=== PATIENT | female | born 1945 | race Caucasian/White ===

== ENCOUNTER 2016-12-04 11:36 | Emergency (ER) | payer MEDICARE, MEDICAID ==
[~2016-12-04] VITALS: Ht 165.1 cm; Wt 65.8 kg
[2016-12-04 12:00] VITALS: BP_SYST 120
--- NOTE | 2016-12-04 12:00 | NUR ---
Patient to ER bed 04 to gown for evaluation. Side rails up. Report given to CHASE Soliman.
--- NOTE | 2016-12-04 12:10 | NUR ---
Pt presents with soboe. Breathing is even and slightly labored on Ra. Sat = 97%. Wheezes to B/L lungs. No acute distress. Productive cough.
--- NOTE | 2016-12-04 12:11 | NUR ---
Dr. Mckeon at bedside for evaluation
[2016-12-04] MEDS ORDERED: IPRATROPIUM/ALBUTEROL SULFATE 3 ML AMPUL.NEB INH ONE (12:15)
[2016-12-04] MEDS ORDERED: DEXAMETHASONE SOD PHOSPHATE 10 MG/ML VIAL IM ONE (12:15)
--- NOTE | 2016-12-04 12:25 | NUR ---
Lab at bedside for blood draw
[2016-12-04 12:41] LABS: BASOPHILS % (AUTO) 0.5 % (0.0-2.0); EOSINOPHILS # (AUTO) 0.9 K/uL (0.0-0.4); EOSINOPHILS % (AUTO) 9.4 % (0.0-4.0); HEMATOCRIT 37.9 % (36-48); HEMOGLOBIN 12.7 g/dL (12.0-16.0); LYMPHOCYTES # (AUTO) 1.6 K/uL (1.0-5.5); LYMPHOCYTES % (AUTO) 16.7 % (20.5-51.5); MEAN CORPUSCULAR HEMOGLOBIN 30 pg (27-31); MEAN CORPUSCULAR HGB CONC 34 % (32-36); MEAN CORPUSCULAR VOLUME 89 fL (79.0-98.0); MONOCYTES # (AUTO) 0.7 K/uL (0.0-1.0); MONOCYTES % (AUTO) 7.4 % (1.7-9.3); NEUTROPHILS # (AUTO) 6.6 K/uL (1.8-7.7); PLATELET COUNT (AUTO) 369 K/uL (130-430); RED BLOOD CELL COUNT(AUTO) 4.28 MIL/uL (4.2-6.2); RED CELL DISTRIBUTION WIDTH 13.1 % (9.0-15.0); WHITE BLOOD COUNT (AUTO) 9.8 K/uL (4.8-10.8)
[2016-12-04 12:53] LABS: CALCIUM 8.9 mg/dL (8.4-11.0); CREATININE 0.96 mg/dL (0.55-1.30); POTASSIUM 3.5 mmol/L (3.5-5.1)
[2016-12-04 12:58] LABS: TOTAL BILIRUBIN 0.2 mg/dL (0.0-1.0); TOTAL PROTEIN, SERUM 7.4 g/dL (6.4-8.3)
--- NOTE | 2016-12-04 13:14 | NUR ---
BREATHING TREATMENT GIVEN. PT HAS A TIGHT CONGESTED SOUNDING COUGH. 02 SATS 98% DURING BREATHING TREATMENT.
[2016-12-04 14:26] VITALS: BP_SYST 112
--- NOTE | 2016-12-04 14:26 | NUR ---
Patient given written and verbal discharge instructions and verbalizes understanding. ER MD discussed with patient the results and treatment provided. Given copies of tests performed in ER. Patient in stable condition. ID arm band removed. Rx of bactrim and prednisone given. Patient educated on pain management and to follow up with PMD. Pain Scale . Opportunity for questions provided and answered. Pt discharged and will wait in the lobby for her taxi ride.
== END 2016-12-04 14:24 | disposition home or self-care (01) ==
LOC: SED 11:36
DX: J20.9 Acute bronchitis, unspecified (principal); E11.9 Type 2 diabetes mellitus without complications; I10 Essential (primary) hypertension; Z86.79 Personal history of other diseases of the circulatory system; Z88.0 Allergy status to penicillin
CPT/HCPCS: 36415; 71010; 80053; 83880; 85025; 96372; 99285; J1100

== ENCOUNTER 2017-01-10 15:45 | Inpatient (IN) | payer MEDICAID, MEDICARE ==
[~2017-01-10] VITALS: Ht 165.1 cm; Wt 79.4 kg
[2017-01-10 15:58] VITALS: BP_SYST 148
[2017-01-10] MEDS ORDERED: LACTULOSE 20 GM/30 ML UDC PO ONE (16:00)
[2017-01-10] MEDS ORDERED: NA PHOS,M-B/NA PHOS,DI-BA 118 ML (FLEET ENEMA) RC ONE (16:00)
[2017-01-10] MEDS ORDERED: NA PHOS,M-B/NA PHOS,DI-BA 66.6 ML (FLEET ENEMA PEDS) RC ONE ×2 (16:15)
[2017-01-10] MEDS ORDERED: NACL 0.9% 1,000 ML IV ONE (16:45)
[2017-01-10] MEDS ORDERED: MAGNESIUM CITRATE 300 ML ORAL SOLUTION PO ONE (17:00)
[2017-01-10 17:11] LABS: BASOPHILS % (AUTO) 0.3 % (0.0-2.0); EOSINOPHILS # (AUTO) 0.1 K/uL (0.0-0.4); EOSINOPHILS % (AUTO) 0.5 % (0.0-4.0); HEMATOCRIT 41.7 % (36-48); HEMOGLOBIN 13.8 g/dL (12.0-16.0); LYMPHOCYTES # (AUTO) 0.8 K/uL (1.0-5.5); LYMPHOCYTES % (AUTO) 6.4 % (20.5-51.5); MEAN CORPUSCULAR HEMOGLOBIN 29 pg (27-31); MEAN CORPUSCULAR HGB CONC 33 % (32-36); MEAN CORPUSCULAR VOLUME 88 fL (79.0-98.0); MONOCYTES # (AUTO) 0.5 K/uL (0.0-1.0); NEUTROPHILS # (AUTO) 11.6 K/uL (1.8-7.7); NEUTROPHILS % (AUTO) 88.8 % (40.0-70.0); PLATELET COUNT (AUTO) 370 K/uL (130-430); RED BLOOD CELL COUNT(AUTO) 4.74 MIL/uL (4.2-6.2); RED CELL DISTRIBUTION WIDTH 13.4 % (9.0-15.0)
[2017-01-10 17:22] LABS: CALCIUM 9.2 mg/dL (8.4-11.0); CREATININE 1.02 mg/dL (0.55-1.30)
[2017-01-10 17:27] LABS: ALBUMIN 3.4 g/dL (3.4-4.8); TOTAL BILIRUBIN 0.3 mg/dL (0.0-1.0); TOTAL PROTEIN, SERUM 7.9 g/dL (6.4-8.3)
[2017-01-10 17:30] VITALS: BP_SYST 149
[2017-01-10] MEDS ORDERED: GOLYTELY / COLYTE SOLUTION 4 LITERS PO ONE (18:15)
[2017-01-10 19:50] VITALS: BP_SYST 146
[2017-01-10 20:00] VITALS: BP_SYST 146
[2017-01-10] MEDS ORDERED: BISACODYL 5 MG TABLET.DR (DULCOLAX) ONE (21:34)
[2017-01-10] MEDS: LR 1,000 ML IV SCH (22:45)
[2017-01-10] MEDS ORDERED: DEXTROSE 50% JECT 50 ML DISP.SYRIN IVP PRN (22:45)
[2017-01-10] MEDS ORDERED: INSULIN REGULAR, HUMAN 100 UNITS/ML, 10 ML VIAL (novoLIN R) SUBCUT PRN (22:45)
[2017-01-11 00:43] VITALS: BP_SYST 132
[2017-01-11 02:32] LABS: BILIRUBIN,URINE NEGATIVE (NEGATIVE); BLOOD, URINE NEGATIVE (NEGATIVE); CLARITY/URINE CLEAR (CLEAR); COLOR,URINE YELLOW (YELLOW); GLUCOSE,URINE NEGATIVE (NEGATIVE); KETONES,URINE NEGATIVE (NEGATIVE); LEUKOCYTE ESTERASE ,URINE NEGATIVE (NEGATIVE); NITRITE, URINE NEGATIVE (NEGATIVE); PH,URINE 6.5 (5.0-8.0); PROTEIN URINE NEGATIVE (NEGATIVE); UROBILINOGEN,URINE 0.2 (0.2-1.0)
[2017-01-11 04:03] VITALS: BP_SYST 136
[2017-01-11 06:43] LABS: BASOPHILS % (AUTO) 0.2 % (0.0-2.0); EOSINOPHILS # (AUTO) 0.2 K/uL (0.0-0.4); EOSINOPHILS % (AUTO) 2.2 % (0.0-4.0); HEMATOCRIT 35.5 % (36-48); LYMPHOCYTES # (AUTO) 1.5 K/uL (1.0-5.5); LYMPHOCYTES % (AUTO) 14.6 % (20.5-51.5); MEAN CORPUSCULAR HEMOGLOBIN 30 pg (27-31); MEAN CORPUSCULAR HGB CONC 34 % (32-36); MEAN CORPUSCULAR VOLUME 88 fL (79.0-98.0); MONOCYTES # (AUTO) 0.9 K/uL (0.0-1.0); MONOCYTES % (AUTO) 8.5 % (1.7-9.3); NEUTROPHILS # (AUTO) 7.9 K/uL (1.8-7.7); NEUTROPHILS % (AUTO) 74.5 % (40.0-70.0); PLATELET COUNT (AUTO) 293 K/uL (130-430); RED BLOOD CELL COUNT(AUTO) 4.02 MIL/uL (4.2-6.2); RED CELL DISTRIBUTION WIDTH 13.1 % (9.0-15.0); WHITE BLOOD COUNT (AUTO) 10.5 K/uL (4.8-10.8)
[2017-01-11 06:44] LABS: PROTHROMBIN TIME 10.6 SECS (9.5-12.5)
[2017-01-11 07:19] LABS: CALCIUM 8.6 mg/dL (8.4-11.0); CREATININE 0.77 mg/dL (0.55-1.30); FREE T4 (FREE THYROXINE) 0.7 ng/dL (0.6-1.6); POTASSIUM 3.6 mmol/L (3.5-5.1); THYROID STIMULATING HORMONE 0.85 uIu/mL (0.34-4.82)
[2017-01-11] MEDS ORDERED: GOLYTELY / COLYTE SOLUTION 4 LITERS PO ONE ×2 (08:00→18:00)
[2017-01-11 08:01] VITALS: BP_SYST 128
[2017-01-11] MEDS: LR 1,000 ML IV SCH (08:45)
[2017-01-11 11:46] VITALS: BP_SYST 108
[2017-01-11 15:56] VITALS: BP_SYST 113
[2017-01-11] MEDS ORDERED: BISACODYL 5 MG TABLET.DR (DULCOLAX) PO ONE (17:00)
[2017-01-11 18:30] VITALS: BP_SYST 124
[2017-01-12 01:07] VITALS: BP_SYST 150
[2017-01-12 07:45] VITALS: BP_SYST 101
[2017-01-12 12:00] VITALS: BP_SYST 99
[2017-01-12] MEDS ORDERED: DOCUSATE SODIUM 100 MG CAPSULE PO PRN (15:30)
[2017-01-12 16:00] VITALS: BP_SYST 115
[2017-01-12 16:10] VITALS: BP_SYST 115
[2017-01-12 18:43] VITALS: BP_SYST 118
[2017-01-13] MEDS ORDERED: POLYETHYLENE GLYCOL 3350, 17 GM/ POWD.PACK PO SCH (09:00)
== END 2017-01-12 21:14 | disposition home or self-care (01) | DRG 247 ==
LOC: SED 15:45 → SMU 17:00
PROVIDERS: ADMIT Internal Medicine; ATTEND Internal Medicine
DX: K56.41 Fecal impaction (principal); E11.65 Type 2 diabetes mellitus with hyperglycemia; I10 Essential (primary) hypertension; E78.5 Hyperlipidemia, unspecified; E66.9 Obesity, unspecified; D72.829 Elevated white blood cell count, unspecified; H40.9 Unspecified glaucoma; Z88.0 Allergy status to penicillin; Z86.73 Personal history of transient ischemic attack (TIA), and cerebral infarction without residual deficits; Z68.29 Body mass index [BMI] 29.0-29.9, adult
CPT/HCPCS: 36415; 74000-TC; 80048; 80053; 80061; 81003; 82962; 83036; 83735-TC; 84439; 84443-TC; 85025; 85610-TC; 85730-TC; 99285; J1815; J7030

== ENCOUNTER 2017-01-17 15:36 | Inpatient (IN) | payer MEDICAID, MEDICARE ==
[~2017-01-17] VITALS: Ht 165.1 cm; Wt 81.6 kg
[2017-01-17] MEDS ORDERED: NACL 0.9% 1,000 ML IV SCH (15:40)
[2017-01-17 15:45] VITALS: BP_SYST 130
--- NOTE | 2017-01-17 15:52 | NUR ---
Pt report received from CHASE Parnell. Pt AAOx4, coherent speech, denies LOC, no trauma or injury noted.
--- NOTE | 2017-01-17 15:52 | NUR ---
Arrived via S ambulance for weakness, states that she nearly passed out today while climbing stairs and did in fact pass out yesterday while in the bathroom. Placed in room 2 . Placed on manager monitoring, blood pressure machine and pulse oximeter. To gown for exam. Side rails up. Report given to Nelson STONE.
[2017-01-17] MEDS ORDERED: NACL 0.9% 1,000 ML IV ONE (16:00)
--- NOTE | 2017-01-17 16:00 | NUR ---
# 18 gauge angiocath placed to RAC. Use of asceptic technique. Opsite placed over site. Blood return noted. Blood for lab drawn from site. Flushed with 10 cc of normal saline. No evidence of infiltration noted. Patient tolerated well.
--- NOTE | 2017-01-17 16:15 | NUR ---
Dr. Mckeon at bedside to assess pt.
--- NOTE | 2017-01-17 16:19 | NUR ---
01/17/17 1619: Late Entry: NS 999 mL/hr started at 1619 and ended at 1650.
[2017-01-17 16:23] LABS: HEMATOCRIT 40.5 % (36-48); HEMOGLOBIN 13.2 g/dL (12.0-16.0); MEAN CORPUSCULAR HEMOGLOBIN 29 pg (27-31); MEAN CORPUSCULAR HGB CONC 33 % (32-36); MEAN CORPUSCULAR VOLUME 87 fL (79.0-98.0); PLATELET COUNT (AUTO) 257 K/uL (130-430); RED BLOOD CELL COUNT(AUTO) 4.64 MIL/uL (4.2-6.2); RED CELL DISTRIBUTION WIDTH 13.2 % (9.0-15.0); WHITE BLOOD COUNT (AUTO) 3.8 K/uL (4.8-10.8)
[2017-01-17 16:31] LABS: PROTHROMBIN TIME 10.8 SECS (9.5-12.5)
[2017-01-17 16:40] LABS: CALCIUM 8.5 mg/dL (8.4-11.0); CREATININE 1.16 mg/dL (0.55-1.30); POTASSIUM 3.3 mmol/L (3.5-5.1)
[2017-01-17 16:44] LABS: ALBUMIN 3.1 g/dL (3.4-4.8); BAND % (MANUAL) 3 % (0-6); BASOPHILS % (MANUAL) 0 % (0-2); EOSINOPHILS % (MANUAL) 0 % (0-7); LYMPHOCYTES % (MANUAL) 22 % (20-46); MONOCYTES % (MANUAL) 19 % (0-11); TOTAL BILIRUBIN 0.2 mg/dL (0.0-1.0); TOTAL PROTEIN, SERUM 7.4 g/dL (6.4-8.3)
[2017-01-17] MEDS ORDERED: ASPIRIN 81 MG TAB.CHEW PO ONE (16:45)
[2017-01-17] MEDS ORDERED: cefTRIAXone 1 GM IVPB PREMIX 50 ML IV ONE (17:00)
--- NOTE | 2017-01-17 17:00 | NUR ---
Pt denies c/o pain or discomfort, no needs verbalized at this time.
--- NOTE | 2017-01-17 17:30 | NUR ---
Pt assisted to bedside comode, unable to provide urine at this time
--- NOTE | 2017-01-17 17:50 | NUR ---
Note janeth in EDM - 01/17/17 at 1907 by KEVIN Patient will be admitted to care of Dr. Tellez. Admitted to Tele unit. Will go to room 121 A. Belongings list completed. Summary report printed. Report will be given at bedside.
--- NOTE | 2017-01-17 17:53 | NUR ---
Patient will be admitted to care of Dr. Tellez. Admitted to Tele unit. Will go to room 121A. Belongings list completed. Summary report printed. Report will be given at bedside.
--- NOTE | 2017-01-17 17:56 | NUR ---
ADMIT NOTE Received pt from ER to the floor with a diagnosis of ALOC. Admission process initiated. patient oriented to pain management, safety and call light-teach back done.
[2017-01-17 18:11] VITALS: BP_SYST 160
--- NOTE | 2017-01-17 18:55 | NUR ---
Marcos fowler in ED - 01/17/17 at 1907 by KEVIN Pt assisted to bedside comode, unable to provide urine at this time.
[2017-01-17] MEDS ORDERED: POTASSIUM CHLORIDE 20 MEQ TAB.PRT.SR PO ONE (19:00)
[2017-01-17 19:05] LABS: BILIRUBIN,URINE NEGATIVE (NEGATIVE); BLOOD, URINE NEGATIVE (NEGATIVE); CLARITY/URINE CLEAR (CLEAR); COLOR,URINE YELLOW (YELLOW); GLUCOSE,URINE NEGATIVE (NEGATIVE); KETONES,URINE NEGATIVE (NEGATIVE); LEUKOCYTE ESTERASE ,URINE NEGATIVE (NEGATIVE); NITRITE, URINE NEGATIVE (NEGATIVE); PROTEIN URINE NEGATIVE (NEGATIVE); UROBILINOGEN,URINE 0.2 (0.2-1.0)
--- NOTE | 2017-01-17 19:46 | NUR ---
CONSULTATION PAGED REASON FOR CONSULTATION:SYNCOPE WAS CONSULT CALLED?Y PERSON WHO WAS NOTIFIED:LUIZ CONSULTING PHYSICIAN:SHANIQUE BRITT TOOL FILER SPECIALTY:CARDIO TOOL FILER PHONE NUMBER:[phone]
[2017-01-17 20:00] VITALS: BP_SYST 155
--- NOTE | 2017-01-17 20:00 | NUR ---
Initial Notes Received patient resting in bed, awake, alert, oriented. Patient denies any acute distress or pain at this time. Vital signs stable. Breathing is even and unlabored. IV site patent/clean/dry. Needs addressed. Educated patient on use of call light for assistance and fall precautions, patient verbalized understanding. Sitter at bedside, call light in hand. Will continue to monitor.
--- NOTE | 2017-01-17 20:17 | NUR ---
CONSULTATION PAGED REASON FOR CONSULTATION:ALOC WAS CONSULT CALLED?Y PERSON WHO WAS NOTIFIED:KHRIS CONSULTING PHYSICIAN:CITLALI MCDONALD HOT PLATE PLYWOOD PRESS FEEDER SPECIALTY:NEURO HOT PLATE PLYWOOD PRESS FEEDER PHONE NUMBER:[phone]
[2017-01-17] MEDS: DOCUSATE SODIUM 250 MG CAPSULE PO SCH (20:38)
--- NOTE | 2017-01-17 22:00 | NUR ---
Rounds and new IV insertion Patient resting in bed awake, watching TV. Patient denies any acute distress or pain at this time. Breathing is even and unlabored. Patient requesting new IV site, stating old IV is bothering her. New IV site started left forearm #22, good blood return noted, no S/S infiltration noted. Needs addressed. Call light in hand, sitter at bedside. Will continue to monitor.
--- NOTE | 2017-01-18 | NUR ---
Rounds Patient resting in bed with eyes closed, easily aroused. Patient denies any acute distress or pain at this time. Breathing is even and unlabored. Needs addressed. Sitter at bedside. Will continue to monitor.
[2017-01-18 00:13] VITALS: BP_SYST 104
--- NOTE | 2017-01-18 02:00 | NUR ---
Rounds Patient resting in bed, awake. Patient complaining of neighbor's television, stating it is too loud. Nurse was able to get television turned off. Patient denies any acute distress or pain. Breathing even and unlabored. All other needs addressed. Sitter at bedside.
--- NOTE | 2017-01-18 04:00 | NUR ---
Rounds Patient resting in bed with eyes closed. No acute distress noted, breathing is even and unlabored. Call light in hand, sitter at bedside. Will continue to monitor.
[2017-01-18 04:22] VITALS: BP_SYST 107
--- NOTE | 2017-01-18 06:25 | NUR ---
Closing Notes Patient sitting at edge of bed, watching TV. Patient denies any acute distress or pain at this time. Breathing is even and unlabored. IV site patent/clean/dry, no S/S infection/infiltration noted. Needs addressed throughout shift. Call light in hand, fall precautions in place, sitter at bedside. Will continue to monitor and endorse all patient care/needs to oncoming nurse.
--- NOTE | 2017-01-18 07:25 | NUR ---
AM RN Notes Report given by LANEY pinzon RN at bedside. Patient is awake. Informed of lab work to be drawn. Educated on safety call light is with in reach. Bed is in lowest position.
[2017-01-18 08:48] LABS: BASOPHILS % (AUTO) 0.5 % (0.0-2.0); EOSINOPHILS % (AUTO) 0.7 % (0.0-4.0); HEMATOCRIT 39.1 % (36-48); HEMOGLOBIN 12.8 g/dL (12.0-16.0); LYMPHOCYTES # (AUTO) 0.7 K/uL (1.0-5.5); MEAN CORPUSCULAR HEMOGLOBIN 29 pg (27-31); MEAN CORPUSCULAR HGB CONC 33 % (32-36); MEAN CORPUSCULAR VOLUME 87 fL (79.0-98.0); MONOCYTES # (AUTO) 0.5 K/uL (0.0-1.0); MONOCYTES % (AUTO) 11.5 % (1.7-9.3); NEUTROPHILS # (AUTO) 3.6 K/uL (1.8-7.7); NEUTROPHILS % (AUTO) 73.3 % (40.0-70.0); PLATELET COUNT (AUTO) 230 K/uL (130-430); RED BLOOD CELL COUNT(AUTO) 4.47 MIL/uL (4.2-6.2); RED CELL DISTRIBUTION WIDTH 13.1 % (9.0-15.0); WHITE BLOOD COUNT (AUTO) 4.8 K/uL (4.8-10.8)
[2017-01-18 08:50] VITALS: BP_SYST 117
[2017-01-18] MEDS: DOCUSATE SODIUM 250 MG CAPSULE PO SCH ×2 (08:59→21:00)
--- NOTE | 2017-01-18 09:30 | NUR ---
Rn rounding notes Patient is awake finishing up with Echo cardiogram. Assessment done on patient. Vital signs were done and imputed. Patient is requesting boost will follow up with doctor Rosalinda.
[2017-01-18 09:32] LABS: ERYTHROCYTE SEDIMENTATION RATE 33 MM/HR (0-20)
[2017-01-18 09:48] LABS: TRIGLYCERIDES 74 mg/dL (30-150)
[2017-01-18 09:49] LABS: CHOLESTEROL 144 mg/dL (<200); HDL CHOLESTEROL 41 mg/dL (>55); LDL CHOLESTEROL 91 mg/dL (<100)
[2017-01-18 09:55] LABS: ANION GAP 7 (5-15); ASPARTATE AMINOTRANSFERASE 24 U/L (10-37); CALCIUM 8.4 mg/dL (8.4-11.0); CHLORIDE 101 mmol/L (98-107); CREATININE 0.94 mg/dL (0.55-1.30); GFR AFRICAN AMERICAN 76 mL/min (>90); GLUCOSE 144 mg/dL (70-99); POTASSIUM 4.1 mmol/L (3.5-5.1); SODIUM SERUM 136 mmol/L (136-145); TOTAL BILIRUBIN 0.2 mg/dL (0.0-1.0); UREA NITROGEN, BLOOD 10 mg/dL (8-21)
[2017-01-18 09:56] LABS: ALANINE AMINOTRANSFERASE 22 U/L (12-78); TOTAL PROTEIN, SERUM 7.1 g/dL (6.4-8.3)
--- NOTE | 2017-01-18 11:35 | NUR ---
RN rounding notes Patient is awake and laying in bed. Call light is with in reach and bed is in lowest position.
[2017-01-18 12:00] VITALS: BP_SYST 109
--- NOTE | 2017-01-18 12:27 | NUR ---
CONSULT PSYCH [facility] DR HOOVER [phone] S/W PATY EXCHANGE @ [id number]
--- NOTE | 2017-01-18 12:30 | NUR ---
Social Service Note: Pt referred to manager social responsibility by case management associate. WEEKDAY BABYSITTER met with pt at bedside; WEEKDAY BABYSITTER asked pt to talk about her home environment; pt states that she is going to be moving soon into an extended care hotel where there is a kitchen temporarily until she can find a more permanent housing situation. Pt sates that she is currently living with relatives who do not keep a clean house and do not help pt out. Pt states that she utilizes taxis to get to the store. WEEKDAY BABYSITTER spoke with pt about senior services and provided pt with contact information for Senior Services, Meals on Wheels, Local Senior Centers, and In Home Supportive Services. WEEKDAY BABYSITTER will remain available for support and will follow up as needed.
--- NOTE | 2017-01-18 13:41 | NUR ---
Rn rounding note Patient is awake and reading a magazine. Bed is in the lowest position, call light is with in reach. No other intervention needed at this time.
--- NOTE | 2017-01-18 15:50 | NUR ---
RN rounding note Patient is awake, bed is in lowest position, call light is with in reach. Patient states pain level is 0/10.N other intervention needed at this time.
[2017-01-18] MEDS: cefTRIAXone 1 GM in D5W 50 ML IV SCH (17:39)
--- NOTE | 2017-01-18 17:44 | NUR ---
Rn Rounding note Routine medication started. Placed commode on right side of bed, table placed on left side of bed. Call light is with in reach, bed in lowest position. Patients dinner just arrived.
--- NOTE | 2017-01-18 18:34 | NUR ---
PAGED PAGED CHAPINCITO PAREKH AT [phone] SPOKE WITH NOAM.
--- NOTE | 2017-01-18 18:45 | NUR ---
CT SCAN/CAROTID US: PATIENT REFUSED CT SCAN OF BRAIN/HEAD W/O CONTRAST AND CAROTID ULTRASOUND,DR WATTERS AWARE.
--- NOTE | 2017-01-18 18:48 | NUR ---
RN closing note Patient is sitting up in bed and reading a magazine. Patient has call light with in reach. Bed is in the lowest position. Patient is requesting a warm blanket, warm blanket provided. Pain level is 0/10 stated by the patient.
[2017-01-18 19:05] VITALS: BP_SYST 112
--- NOTE | 2017-01-18 19:05 | NUR ---
Initial Round Received patient in bed. Pt is a/a/o x3. No s/s of any pain noted. V/S are wnl. IV is noted to L f/a g22,no infiltrate and with good blood return. All extremities are strong. Discussed miranda of care with patient and verbalized understanding. Bed in low position with call light within reach. Will cont to monitor.
--- NOTE | 2017-01-18 21:05 | NUR ---
Rounds Pt is resting at this time. No s/s of any distress noted. Bed in low position with call light within reach, will cont to monitor.
--- NOTE | 2017-01-18 22:30 | NUR ---
NOTE Patient in bed sleeping. No S/S of pain or distress noted. Fall precautions in place.
--- NOTE | 2017-01-18 23:05 | NUR ---
Rounds Pt is resting comfortably. No s/s of any pain or distress noted. Bed in low position with call light within reach. Will cont to monitor.
[2017-01-19 00:03] VITALS: BP_SYST 97
--- NOTE | 2017-01-19 05:00 | NUR ---
No Vital Signs at 0400 Pt requested to stock broker supervisor not to be awaken for v/s at 0400.
--- NOTE | 2017-01-19 06:59 | NUR ---
Final Notes Patient is resting at this time. No s/s of any distress noted. V/s are wnl. All needs met and anticipated by noc nurses. Bed in low position with call light within reach. Will endorse.
--- NOTE | 2017-01-19 07:15 | NUR ---
AM ROUNDS PT A/O X3, DENIES PAIN AT THIS TIME...HL TO LAC FLUSHES WELL...PT MAKES NEEDS KNOWN...NURSE WILL REMAIN IN ROOM...PT REQUESTED FOR VITAL SIGNS TO BE TAKEN AT LATER TIME...WILL CONT TO MONITOR
--- NOTE | 2017-01-19 07:51 | NUR ---
Nutrition Update Deven Scale 17 noted. Pt admitted for ALOC. Diet: regular BMI: 30 kg/m2 RD to follow per nutrition care standards.
--- NOTE | 2017-01-19 07:58 | NUR ---
ASSISTED PT TO BSC AND TO SINK TO WASH UP PT AMBULATED WITH STEADY GAIT....WILL CONT TO MONITOR
--- NOTE | 2017-01-19 08:16 | NUR ---
PT TALKING TO HERSELF AT THIS TIME PT SITTING UP IN BED, DOZING OFF AND TALKING TO HERSELF.
--- NOTE | 2017-01-19 08:18 | NUR ---
DR BRITT AT BEDSIDE
[2017-01-19 09:33] VITALS: BP_SYST 101
[2017-01-19] MEDS: DOCUSATE SODIUM 250 MG CAPSULE PO SCH ×2 (09:35→19:51)
--- NOTE | 2017-01-19 10:17 | NUR ---
PT AMBULATING WITH PHYSICAL THERAPY
--- NOTE | 2017-01-19 11:23 | NUR ---
PT SITTING UP IN BED, PLAYING WITH CELLPHONE..NO CHANGES...WILL CONT TO MONITOR
--- NOTE | 2017-01-19 11:23 | NUR ---
COUGH PT WITH A PRODUCTIVE COUGH...WILL INFORM DR WATTERS.
--- NOTE | 2017-01-19 14:18 | NUR ---
PT URINATED USING BSC WITH NO DIFFICULTY
[2017-01-19 16:39] VITALS: BP_SYST 103
--- NOTE | 2017-01-19 16:44 | NUR ---
ROUNDS PT SITTING UP IN BED. DENIES PAIN. NO DISTRESS NOTED...WILL CONT TO MONITOR
[2017-01-19] MEDS: cefTRIAXone 1 GM in D5W 50 ML IV SCH (17:05)
[2017-01-19] MEDS ORDERED: AZITHROMYCIN 250 MG TABLET PO ONE (18:15)
--- NOTE | 2017-01-19 18:20 | NUR ---
ROUNDS PT REMAINS STABLE...SEEN BY DR WATTERS...WILL CONT TO MONITOR
--- NOTE | 2017-01-19 19:20 | NUR ---
Initial Notes Pt is A/Ox3. Pt denies any pain or sob at this time. Breathing is even and unlabored. No acute distress noted. Plan of care discussed with pt, pt verbalized understanding. Pt educated long chain quiller tender light use, and correct back demonstration noted. Safety measures in place, side rails up x3 with bed in lowest, locked position, bed alarm on at all times. All needs met. Call light in hand. Pt refused vital signs at this time. Will continue to monitor.
[2017-01-19] MEDS: PROMETHAZINE-DM 6.25 MG-15 MG/5 ML UDC PO PRN (19:51)
--- NOTE | 2017-01-19 19:57 | NUR ---
Rounds Scheduled medications given at this time. Pt refused colace, stating she only takes it once a day. Pt watching tv. All needs met. Call light in hand. Will continue to monitor.
--- NOTE | 2017-01-20 00:40 | NUR ---
Rounds Pt is sleeping. No acute distress noted. Call light in reach. Will continue to monitor.
[2017-01-20] MEDS: PROMETHAZINE-DM 6.25 MG-15 MG/5 ML UDC PO PRN ×3 (01:51→11:44)
--- NOTE | 2017-01-20 02:30 | NUR ---
Rounds Pt is resting safely in bed. All needs met. No acute distress noted. Call light in reach. Will continue to monitor.
--- NOTE | 2017-01-20 04:55 | NUR ---
Rounds Pt is sleeping comfortably in bed at this time. No acute distress or sob noted. All needs met. Call light in reach. Will continue to monitor.
--- NOTE | 2017-01-20 06:20 | NUR ---
Closing Notes Care endorsed to BARON Marinelli at this time. Pt in stable condition. Pt denies any pain or discomfort. Pt is lying in bed, awake, a/oX4. All needs met throughout shift.
--- NOTE | 2017-01-20 06:30 | NUR ---
AM Initial Note Pt aaox4 with no complaints of dizziness, fainting, pain or discomfort. Non productive cough noted. No sob, difficulty breathing or distress noted. IV left forearm #22g saline locked patent and flushing. Educated about fall and safety precautions. Encouraged to call for assistance. Will monitor.
[2017-01-20 07:33] VITALS: BP_SYST 113
[2017-01-20] MEDS: AZITHROMYCIN 250 MG TABLET PO SCH (08:13)
[2017-01-20] MEDS: DOCUSATE SODIUM 250 MG CAPSULE PO SCH ×2 (08:14→22:02)
--- NOTE | 2017-01-20 08:15 | NUR ---
Rounds Pt awake eating breakfast. No complaints of pain or discomfort. No distress noted. Call light within reach. Encouraged to call for assistance.
--- NOTE | 2017-01-20 09:30 | NUR ---
Refused PT Pt refused Physical Therapy. States she does not feel like having therapy at this moment and to come back later.
--- NOTE | 2017-01-20 10:44 | NUR ---
Rounds Pt sound asleep. No signs of facial grimacing for pain or discomfort. No distress noted. Call light within reach. Will monitor.
--- NOTE | 2017-01-20 11:45 | NUR ---
Cough Pt complaints of productive coughing. Medicated with Phenergan. Educated with fall and safety precautions. Encouraged to call for assistance. Call light within reach. Will monitor.
[2017-01-20 12:02] VITALS: BP_SYST 118
--- NOTE | 2017-01-20 12:45 | NUR ---
Dr. Rosalinda LANG doing rounds. Plan of care discussed.
--- NOTE | 2017-01-20 12:47 | NUR ---
Rounds Pt eating lunch. Refused Physical therapy and wants therapist to come back in an hour because she eats slow. No distress noted. Will continue to monitor.
--- NOTE | 2017-01-20 13:58 | NUR ---
Physical Therapy Pt doing exercises on chair and ambulate from bed to door and back. Pt states she is getting shortness of breath and wants to stop. No distress noted.
--- NOTE | 2017-01-20 15:15 | NUR ---
PHYSICAL THERAPY CO-SIGN The Physical Therapy Progress Notes documented by Explosive Ordnance Manager have been reviewed. Reviewed/Co-Signed by: Lissa Lama,PT Documentation Done by: Anselmo Carrion PTA I concur with the documentation of this MAGNET PLACER. Plan: continue PT as per plan of care. Addendum: 01/20/17 at 1524 by Lissa Lama PT Amended: Links added.
--- NOTE | 2017-01-20 15:33 | NUR ---
Rounds Pt sound asleep. No significant changes noted. Will monitor.
--- NOTE | 2017-01-20 16:30 | NUR ---
Endorsed Care Endorsed continuous of care to CHASE Mcleod. Pt in stable condition. Denies any pain or discomfort. No distress noted. Transferred patient to Room 131-B.
[2017-01-20 16:38] VITALS: BP_SYST 102
--- NOTE | 2017-01-20 18:30 | NUR ---
CLOSING NOTE PATIENT RESTING COMFORTABLY, NO COMPLAINTS OF PAIN AT THIS TIME. NO NOTABLE SIGNS OF DISTRESS AT THIS TIME. PATIENTS BED IN LOWEST POSITION, CALL LIGHT WITHIN REACH, AND 2 SIDE RAILS ARE UP FOR SAFETY. WILL CONTINUE TO MONITOR PATIENT FOR CHANGES IN STATUS. AWAITING TO GIVE REPORT TO FILTERS ASSEMBLER RN. ALL NEEDS ARE MET FOR THIS SHIFT.
[2017-01-20 20:00] VITALS: BP_SYST 114
--- NOTE | 2017-01-20 20:00 | NUR ---
STARTING NOTE ALMOND PAN FINISHER Patient in bed resting comfortably. She complained that her TV does not work and she wants to be moved to another room. The nurse explained that currently EVS is cleaning the room and once it is ready, the patient will be moved there. No pain or distress noted. Patient refused vital signs at first and appeared confused. Fall precautions in place. Report received from day shift nurse.
--- NOTE | 2017-01-21 00:40 | NUR ---
NOTE Patient in bed sleeping. Fall precautions in place, no pain or distress noted.
[2017-01-21] MEDS: PROMETHAZINE-DM 6.25 MG-15 MG/5 ML UDC PO PRN ×2 (02:08→12:52)
--- NOTE | 2017-01-21 02:30 | NUR ---
NOTE Patient in bed resting and unhappy that she was not moved earlier. The nurse explained that she did not want to wake the patient up since she needs her sleep and to recover and the patient accepted that explanation. The patient was transferred to Room 121A. The patient asked for her "cough medication" and the nurse administered Phenergan PRN per MD order. Fall precautions in place. Productive intermittent cough noted.
[2017-01-21 04:00] VITALS: BP_SYST 108
--- NOTE | 2017-01-21 04:40 | NUR ---
NOTE Patient in bed sleeping. No distress or pain noted. She coughs from time to time and the cough is wet and somewhat productive (still not too much secretions). Fall precautions in place.
--- NOTE | 2017-01-21 07:51 | NUR ---
CLOSING NOTE Patient in bed resting comfortably. She requested another dose Phenergan PRN. The day shift nurse will check the med schedule and administer if the medication is due. No S/S of pain noted, no distress besides the productive intermittent cough. Fall precautions in place. Patient's needs met throughout the shift. Report given to the day shift nurse.
[2017-01-21 08:15] VITALS: BP_SYST 101
[2017-01-21] MEDS: AZITHROMYCIN 250 MG TABLET PO SCH (09:16)
[2017-01-21] MEDS: DOCUSATE SODIUM 250 MG CAPSULE PO SCH ×2 (09:16→21:16)
--- NOTE | 2017-01-21 09:18 | NUR ---
Routine Scheduled medications given per order. Patient resting comfortably in bed with no acute distress noted. Patient stable.
--- NOTE | 2017-01-21 11:00 | NUR ---
Assessment Patient awake, alert, oriented x4. Respiration even and unlabored. Patent 22 gauge saline lock in left forearm. No complaint of pain or discomfort at this time. Patient stable at this time.
--- NOTE | 2017-01-21 11:22 | NUR ---
Patient ambulating in hallway with PT. No distress noted.
[2017-01-21 12:00] VITALS: BP_SYST 109
--- NOTE | 2017-01-21 12:50 | NUR ---
Assessment Patient awake, alert, oriented x4. Glasses. Lungs clear. Respiration even and unlabored. Patent 22 gauge saline lock in left forearm. Denies pain at this time. PRN cough medicine given. Patient stable at this time.
[2017-01-21] MEDS ORDERED: ACETAMINOPHEN 650 MG SUPP.RECT RC PRN (13:00)
--- NOTE | 2017-01-21 14:50 | NUR ---
PHYSICAL THERAPY CO-SIGN The Physical Therapy Progress Notes documented by Runway Model have been reviewed. I CONCUR W/PIPING MANAGER NOTE; Pt HAS MET GOALS, DC PT SERVICES. Reviewed/Co-Signed by: Delia Bailey PT Documentation Done by: CHRIS DU PIPING MANAGER Addendum: 01/21/17 at 1453 by Delia Bailey PT Amended: Links added.
--- NOTE | 2017-01-21 16:00 | NUR ---
DC Planning: LM to [employer] voice mail to fax a home health and contracted snf lists. The pt. is to be dc tomorrow. Addendum: 01/22/17 at 0823 by Christin Summers RN >> Returned call from KEYANNA August at [facility] and receiving the contracted snf list . Also, stated that if the pt dc home with homehealth the coverage will be under Medicare B.
[2017-01-21 16:46] VITALS: BP_SYST 112
[2017-01-21] MEDS: cefTRIAXone 1 GM in D5W 50 ML IV SCH (18:20)
--- NOTE | 2017-01-21 18:22 | NUR ---
Routine Scheduled IV ABX given per order. Patient resting in bed with no complaint of pain or discomfort. Patient stable throughout shift.
--- NOTE | 2017-01-21 19:38 | NUR ---
INITIAL NOTE Patient resting on the bed comfortable. No acute distress. Respiration even and unlabored. AO x 4. Denied of pain. Skin warm and dry to touch. IV intact to right hand, no redness, no swelling. On contact isolation for MRSA of nares. Discussed the safety issue, use call light when need help, and plan of care, verbally understanding. Safety measure maintained. Bed in low position, bed alarm on, side rails up. Call light within reached. Will continue to monitor.
[2017-01-21 19:55] VITALS: BP_SYST 123
--- NOTE | 2017-01-21 19:56 | NUR ---
WRONG ENTRY FOR WRONG PATIENT
--- NOTE | 2017-01-21 19:59 | NUR ---
INITIAL NOTE Patient resting on the bed comfortable. No acute distress. Respiration even and unlabored. AO x 4. Denied of pain. Skin warm and dry to touch. IV intact LFA, no redness, no swelling. Discussed the safety issue, use call light when need help, and plan of care, verbally understanding. Safety measure maintained. Bed in low position, bed alarm on, side rails up. Call light within reached. Will continue to monitor.
--- NOTE | 2017-01-21 22:00 | NUR ---
ROUND Patient resting on the bed comfortable. No acute distress. Safety measure maintained. Bed in low position, bed alarm on, side rails up. Call light within reached. Continue to monitor.
--- NOTE | 2017-01-21 23:50 | NUR ---
ROUND Patient resting on the bed with eyes closed. No acute distress. Safety measure maintained. Call light within reached. Bed in low position, bed alarm on, side rails up. Continue to monitor.
[2017-01-22 00:02] VITALS: BP_SYST 118
--- NOTE | 2017-01-22 01:52 | NUR ---
ROUND Patient sleeping at this time. Respiration even and unlabored. No acute distress. Safety measure maintained. Bed in low position, side rails up, bed alarm on. Call light within reached. Continue to monitor.
--- NOTE | 2017-01-22 04:11 | NUR ---
ROUND Patient sleeping comfortable. Respiration even and unlabored. No acute distress. Safety measure maintained. Bed in low position, side rails up, bed alarm on. Call light within reached. Continue to monitor.
[2017-01-22 06:25] VITALS: BP_SYST 103
--- NOTE | 2017-01-22 06:40 | NUR ---
CLOSING NOTE Patient resting on the bed comfortable. No acute distress. Respiration even and unlabored. Denied of pain. Skin warm and dry to touch. IV intact LFA, no redness, no swelling. All needs met. Hourly rounding during shift. Safety measure maintained. Bed in low position, bed alarm on, side rails up. Call light within reached. Will endorse to morning shift nurse.
[2017-01-22] MEDS: DOCUSATE SODIUM 250 MG CAPSULE PO SCH ×2 (09:36→21:24)
[2017-01-22] MEDS: AZITHROMYCIN 250 MG TABLET PO SCH (09:36)
--- NOTE | 2017-01-22 11:07 | NUR ---
DISCHARGE PLANNING DC planning to arrange home health. Faxed home health referral to [facility] [phone]. Will follow up.
[2017-01-22 12:32] VITALS: BP_SYST 133
[2017-01-22] MEDS ORDERED: IPRATROPIUM/ALBUTEROL SULFATE 3 ML AMPUL.NEB INH SCH (14:45)
[2017-01-22 16:38] VITALS: BP_SYST 116
[2017-01-22] MEDS: cefTRIAXone 1 GM in D5W 50 ML IV SCH (19:28)
[2017-01-22 19:30] VITALS: BP_SYST 109
--- NOTE | 2017-01-22 19:30 | NUR ---
INITIAL NOTE Patient resting on the bed. No acute distress. Respiration even and unlabored. AO x 4. Denied of pain. Skin warm and dry to touch. No IV access at this time. Discussed the safety issue, use call light when need help, and plan of care, verbally understanding. Safety measure maintained. Bed in low position, bed alarm on, side rails up. Call light within reached. Will continue to monitor.
--- NOTE | 2017-01-22 19:35 | NUR ---
NOTE Patient no IV access and Rocephin 1gm IVPB at 1800 not given yet. Explained to patient need a IV access to give medication, verbally understanding and agree to insert a new one. IV inserted on RFA, gauge 22, attempted x2, with good blood return and flushed with NS. Procedure tolerated well. IV antibiotic started. Will observe s/s of infiltration.
[2017-01-22] MEDS: PROMETHAZINE-DM 6.25 MG-15 MG/5 ML UDC PO PRN (21:24)
--- NOTE | 2017-01-22 21:24 | NUR ---
PHENERGAN DM GIVEN Phenergan DM 10ml PO given for cough. No acute distress. Safety measure maintained. Call light within reached. Will continue to monitor.
[2017-01-22] MEDS: ALBUTEROL SULFATE 2 MG TABLET PO SCH (22:00)
--- NOTE | 2017-01-22 22:00 | NUR ---
REFUSED ALBUTEROL 2MG PO Patient refused Albuterol 2mg PO and stated that she already took her cough medicine.
--- NOTE | 2017-01-23 00:15 | NUR ---
NOTE Patient requested to take out IV and stated that 'If you don't take it out. I do myself." IV removed as per requested. IV tip intact, no bleeding. Procedure tolerated well. No c/o pain. No acute distress. Safety measure maintained. Call light within reached. Will continue to monitor.
[2017-01-23 00:22] VITALS: BP_SYST 122
[2017-01-23] MEDS: PROMETHAZINE-DM 6.25 MG-15 MG/5 ML UDC PO PRN (01:51)
--- NOTE | 2017-01-23 01:51 | NUR ---
PHENERGAN DM GIVEN Phenergan DM 10ml PO given for cough. No acute distress. Respiration even and unlabored. Safety measure maintained. Call light within reached. Continue to monitor.
--- NOTE | 2017-01-23 03:45 | NUR ---
ROUND Patient sleeping comfortable. No acute distress. Respiration even and unlabored. Safety measure maintained. Bed in low position, side rails up, bed alarm on. Call light within reached. Continue to monitor.
[2017-01-23 04:50] VITALS: BP_SYST 121
[2017-01-23] MEDS: ALBUTEROL SULFATE 2 MG TABLET PO SCH (06:27)
--- NOTE | 2017-01-23 06:45 | NUR ---
INITIAL NOTE Patient resting on the bed. No acute distress. Respiration even and unlabored. Skin warm and dry to touch. No IV access per patient requested. All needs met. Hourly rounding during shift. Safety measure maintained. Bed in low position, bed alarm on, side rails up. Call light within reached. Will endorse to morning shift.
--- NOTE | 2017-01-23 08:00 | NUR ---
OPENING NOTE PATIENT IS SITTING UP IN BED, EATING BREAKFAST. SHE IS A&O X 4 WITH NO SIGNS OF ALOC, AND STATED SHE IS COMFORTABLE. PT HAS A NON-PRODUCTIVE COUGH, BUT HER LUNG SOUNDS ARE CLEAR BILATERALLY. IT WAS REPORTED TO ME FROM THE PREVIOUS NURSE THAT SHE REFUSED TO HAVE AN IV CATHETER INSERTED, AND SHE WE REFUSED AGAIN WHEN I SUGGESTED IT. I WILL FOLLOW UP WITH DR. WATTERS WHEN HE COMES IN THIS MORNING
[2017-01-23 08:31] VITALS: BP_SYST 143
--- NOTE | 2017-01-23 09:30 | NUR ---
DR WATTERS AT BEDSIDE I SPOKE TO DR WATTERS REGARDING THE IV AND HE NOT TO WORRY ABOUT IT BECAUSE SHE IS GOING TO BE DISCHARGED TODAY
[2017-01-23] MEDS: AZITHROMYCIN 250 MG TABLET PO SCH (09:33)
[2017-01-23] MEDS: DOCUSATE SODIUM 250 MG CAPSULE PO SCH (09:33)
--- NOTE | 2017-01-23 10:00 | NUR ---
ROUNDS/DC PLANNING PT IS SITTING UP IN BED AND STATES SHE IS COMFORTABLE. I ASKED HER ABOUT DISCHARGE TRANSPORTATION AND SHE WANTS TO BE DISCHARGED "AROUND 1400 BECAUSE HER FRIENDS WILL NOT BE ABLE TO PICK HER UP BEFORE 1300"
[2017-01-23] MEDS ORDERED: PHEDM120 (10:02)
[2017-01-23] MEDS ORDERED: CEPH250C PO (10:05)
[2017-01-23] MEDS ORDERED: ALBU2TAB4 PO (10:07)
[2017-01-23 12:00] VITALS: BP_SYST 123
--- NOTE | 2017-01-23 12:00 | NUR ---
ROUNDS PT IS SITTING UP IN BED, WATCHING TV. VS STABLE AND SHE IS PREPARED TO DISCHARGE HOME AT 1400 TODAY.
[2017-01-23 12:11] VITALS: BP_SYST 142
--- NOTE | 2017-01-23 12:48 | NUR ---
DC PLANNING: CALLED THE NUMEROUS HOME HEALTH AGENCIES IF THEY ARE CONTRACTED TO [email or web address] [facility], ALL OF THEM SAID NO. CALLED , [facility] NO ANSWER, OFFICE CLOSED.FAXED ORDER TO AT [facility] . INFORMED BRENDA STONE.
--- NOTE | 2017-01-23 13:47 | NUR ---
D/C Patient Patient given medication reconciliation form as well as paper Rx and D/C instructions. Patient verbalized understanding of exit care education and is ambulatory with steady gait for discharge to home. Patient in stable condition, ID band removed (there was no IV to remove). All belongings sent with patient.
== END 2017-01-23 13:47 | disposition home health service (06) | DRG 204 ==
LOC: SED 15:36 → STU 17:37 → SMU 01-19 18:16
PROVIDERS: ADMIT Internal Medicine; ATTEND Internal Medicine
DX: R55 Syncope and collapse (principal); G31.9 Degenerative disease of nervous system, unspecified; E44.1 Mild protein-calorie malnutrition; F41.9 Anxiety disorder, unspecified; E87.1 Hypo-osmolality and hyponatremia; J20.9 Acute bronchitis, unspecified; F29 Unspecified psychosis not due to a substance or known physiological condition; E87.6 Hypokalemia; K59.09 Other constipation; E78.5 Hyperlipidemia, unspecified; E66.9 Obesity, unspecified; Z68.30 Body mass index [BMI] 30.0-30.9, adult; Z88.0 Allergy status to penicillin; Z86.73 Personal history of transient ischemic attack (TIA), and cerebral infarction without residual deficits; Z59.0 Homelessness; Z91.19 Patient's noncompliance with other medical treatment and regimen
CPT/HCPCS: 36415; 71010; 71020-TC; 80053; 80061; 81003; 83605; 84484; 85007; 85025; 85027; 85610-TC; 85651-TC; 85730-TC; 87081; 87086; 93005; 93306; 96365; 97110-GP; 97116-GP; 97530-GP; 99285; J0696; J7030; J7050; J7060; Q0144

== ENCOUNTER 2017-02-14 18:41 | Inpatient (IN) | payer MEDICAID, MEDICARE ==
[~2017-02-14] VITALS: Ht 165.1 cm; Wt 88.0 kg
[2017-02-14 18:41] VITALS: BP_SYST 113
[~2017-02-14 18:41] MED LIST: ALBU2TAB4 PO; CEPH250C PO; PHEDM120
--- NOTE | 2017-02-14 18:41 | NUR ---
BIB [facility] from home, Patient to ER bed 03 to gown for evaluation. Side rails up.
[2017-02-14] MEDS ORDERED: NACL 0.9% 1,000 ML IV ONE ×2 (18:51→19:45)
--- NOTE | 2017-02-14 19:00 | NUR ---
JULIANA Tam at bedside examining patient.
--- NOTE | 2017-02-14 19:05 | NUR ---
Report received from CHASE Doty: all care endorsed.
--- NOTE | 2017-02-14 19:10 | NUR ---
Patient AAO x4, laying in bed c/o rectal and abd pain, patient states " I have an impaction, I need to be admitted and taken to a room so they can take it out." No acute distress noted. Vital signs stable. Will continue to monitor.
--- NOTE | 2017-02-14 19:15 | NUR ---
Patient given 120 ml of apple juicem, patient then states, "That apple juice is bad, its from [place], they're doing something to that apple juice I need cranberry juice."
--- NOTE | 2017-02-14 19:20 | NUR ---
Patient given cranberry juice and patient stated, "Something is wrong with that cranberry juice its off, give me orange juice, I need orange juice." MANAGER HARDWARE notified. Per MANAGER HARDWARE. Murray hold on the oral fluids at this time, patient to be given IV fluids.
[2017-02-14 19:22] LABS: WHITE BLOOD COUNT (AUTO) 17.9 K/uL (4.8-10.8)
[2017-02-14 19:24] LABS: HEMATOCRIT 42.4 % (36-48); HEMOGLOBIN 13.9 g/dL (12.0-16.0); MEAN CORPUSCULAR HEMOGLOBIN 28 pg (27-31); MEAN CORPUSCULAR HGB CONC 33 % (32-36); MEAN CORPUSCULAR VOLUME 87 fL (79.0-98.0); PLATELET COUNT (AUTO) 312 K/uL (130-430); RED BLOOD CELL COUNT(AUTO) 4.88 MIL/uL (4.2-6.2); RED CELL DISTRIBUTION WIDTH 14.2 % (9.0-15.0)
[2017-02-14 19:26] LABS: CREATININE 1.07 mg/dL (0.55-1.30); POTASSIUM 3.9 mmol/L (3.5-5.1)
[2017-02-14 19:30] LABS: ALBUMIN 3.2 g/dL (3.4-4.8); TOTAL BILIRUBIN 0.3 mg/dL (0.0-1.0); TOTAL PROTEIN, SERUM 7.6 g/dL (6.4-8.3)
--- NOTE | 2017-02-14 19:30 | NUR ---
ER Yonatan at bedside performing rectal exam.
[2017-02-14 19:43] LABS: BILIRUBIN,URINE NEGATIVE (NEGATIVE); BLOOD, URINE 1+ (NEGATIVE); CLARITY/URINE CLEAR (CLEAR); COLOR,URINE YELLOW (YELLOW); GLUCOSE,URINE NEGATIVE (NEGATIVE); KETONES,URINE NEGATIVE (NEGATIVE); LEUKOCYTE ESTERASE ,URINE TRACE (NEGATIVE); NITRITE, URINE NEGATIVE (NEGATIVE); PH,URINE 6.5 (5.0-8.0); PROTEIN URINE NEGATIVE (NEGATIVE); UROBILINOGEN,URINE 0.2 (0.2-1.0)
[2017-02-14 19:44] LABS: BACTERIA,URINE FEW /HPF (None Seen); RBC,URINE 0-3 /HPF (0-3)
[2017-02-14 19:45] LABS: MUCUS,URINE None Seen /LPF (None Seen)
[2017-02-14 19:48] LABS: BAND % (MANUAL) 1 % (0-6); BASOPHILS % (MANUAL) 0 % (0-2); EOSINOPHILS % (MANUAL) 0 % (0-7); LYMPHOCYTES % (MANUAL) 3 % (20-46); MONOCYTES % (MANUAL) 3 % (0-11)
[2017-02-14] MEDS ORDERED: cefTRIAXone 1 GM in D5W 50 ML IV ONE (20:00)
[2017-02-14] MEDS: NA PHOS,M-B/NA PHOS,DI-BA 118 ML (FLEET ENEMA) RC ONE ×2 (20:06→20:13)
[2017-02-14] MEDS ORDERED: cefTRIAXone 1 GM IVPB PREMIX 50 ML IV ONE (20:08)
--- NOTE | 2017-02-14 20:15 | NUR ---
Patient denies taking any medications at home. No medication reconciliation required.
--- NOTE | 2017-02-14 20:28 | NUR ---
ADMISSION NOTE Received patient from ER via gurney. Patient admitted with diagnosis of Fecal Impaction. Patient is awake, alert, oriented X 4. Patient oriented to hospital room, call light, toileting, pain management and safety-teach back done. Patient informed that Maia will be her nurse and that their room number is 104A. Personal belongings checked and Belongings List documented. Call light within reach.
--- NOTE | 2017-02-14 20:28 | NUR ---
Patient will be admitted to care of Dr. Tellez. Admitted to MS unit. Will go to room 104a. Belongings list completed. Summary report printed. Report will be given at bedside.
--- NOTE | 2017-02-14 20:35 | NUR ---
INITIAL NOTE Patient resting on the bed. Respiration even and unlabored. No acute distress. Skin warm and dry to touch. IV intact to RAC, no redness, no swelling patent. C/O abdomen distended with pain but refused any pain med and stated that pain med will cause her constipation. Discussed the safety issue, use call light within reached, and plan of care, verbally understanding. Safety measure maintained. Bed in low position, side rails up. Call light within reached. Will continue to monitor.
[2017-02-14 20:38] VITALS: BP_SYST 145
[2017-02-14 21:00] VITALS: BP_SYST 145
[2017-02-14] MEDS ORDERED: NA PHOS,M-B/NA PHOS,DI-BA 118 ML (FLEET ENEMA) RC ONE (22:45)
[2017-02-14] MEDS ORDERED: ZOLPIDEM TARTRATE 5 MG TABLET PO PRN (22:45)
[2017-02-14] MEDS ORDERED: PROMETHAZINE-DM 6.25 MG-15 MG/5 ML UDC PO PRN (22:45)
[2017-02-14] MEDS ORDERED: MINERAL OIL 30 ML UDC PO ONE (22:45)
[2017-02-14] MEDS ORDERED: ACETAMINOPHEN 325 MG TABLET PO PRN (22:45)
[2017-02-14] MEDS ORDERED: MAGNESIUM CITRATE 300 ML ORAL SOLUTION PO ONE (22:45)
[2017-02-14] MEDS ORDERED: MINERAL OIL 133 ML ENEMA RC ONE (22:45)
[2017-02-14] MEDS ORDERED: LEVOFLOXACIN 500 MG/D5W 100 ML IV ONE (22:45)
--- NOTE | 2017-02-14 23:00 | NUR ---
DR. WATTERS [facility] SEEN THE PATIENT WITH ORDERS
[2017-02-14] MEDS ORDERED: GOLYTELY / COLYTE SOLUTION 4 LITERS PO ONE (23:15)
[2017-02-14] MEDS ORDERED: MILK OF MAGNESIA 30 ML UDC PO ONE (23:30)
[2017-02-15] MEDS ORDERED: LEVOFLOXACIN 500 MG/D5W 100 ML IV ONE (00:22)
[2017-02-15 00:26] VITALS: BP_SYST 141
--- NOTE | 2017-02-15 00:40 | NUR ---
ROUND Patient resting on the bed with eyes closed. No acute distress. Respiration even and unlabored. Safety measure maintained. Call light within reached. Bed in low position, side rails up. Will continue to monitor.
--- NOTE | 2017-02-15 01:50 | NUR ---
NOTE Encouraged patient to drink Golytely, explained the importance to drink it. However, the patient c/o the taste not good. Educated the patient to drink it little by little, verbally understanding. Safety measure maintained. Call light within reached. Will continue to monitor.
[2017-02-15 03:30] VITALS: BP_SYST 128
--- NOTE | 2017-02-15 04:15 | NUR ---
NOTE Patient only drunk a cup of Golytely. Explained and encouraged patient to keep continue to dink one cup every 10-15 mins. Patient stated " I had been drinking a lot of water at home, my stomach full already." Will continue to encourage patient to drink it.
--- NOTE | 2017-02-15 05:45 | NUR ---
ROUND Patient resting on the bed. No acute distress. Safety measure maintained. Bed in low position, side rails up. Call light within reached. Continue to monitor.
--- NOTE | 2017-02-15 06:55 | NUR ---
CLOSING NOTE Patient resting on the bed. Respiration even and unlabored. No acute distress. Skin warm and dry to touch. Patient with small BM note. Patient stated that feeling better. All needs met. Hourly rounding during shift. Continue to encourage patient to drink Golytely. Safety measure maintained. Bed in low position, side rails up. Call light within reached. Will endorse to morning shift nurse.
[2017-02-15 07:23] LABS: CALCIUM 8.9 mg/dL (8.4-11.0); CREATININE 0.97 mg/dL (0.55-1.30); POTASSIUM 3.8 mmol/L (3.5-5.1)
[2017-02-15 07:25] LABS: BASOPHILS # (AUTO) 0.2 K/uL (0.0-0.2); EOSINOPHILS % (AUTO) 0.3 % (0.0-4.0); HEMATOCRIT 41.2 % (36-48); HEMOGLOBIN 13.7 g/dL (12.0-16.0); LYMPHOCYTES # (AUTO) 0.7 K/uL (1.0-5.5); LYMPHOCYTES % (AUTO) 4.9 % (20.5-51.5); MEAN CORPUSCULAR HEMOGLOBIN 29 pg (27-31); MEAN CORPUSCULAR HGB CONC 33 % (32-36); MEAN CORPUSCULAR VOLUME 87 fL (79.0-98.0); MONOCYTES # (AUTO) 1.2 K/uL (0.0-1.0); MONOCYTES % (AUTO) 7.9 % (1.7-9.3); NEUTROPHILS # (AUTO) 13.1 K/uL (1.8-7.7); NEUTROPHILS % (AUTO) 85.9 % (40.0-70.0); PLATELET COUNT (AUTO) 275 K/uL (130-430); RED BLOOD CELL COUNT(AUTO) 4.71 MIL/uL (4.2-6.2); RED CELL DISTRIBUTION WIDTH 13.8 % (9.0-15.0); WHITE BLOOD COUNT (AUTO) 15.2 K/uL (4.8-10.8)
--- NOTE | 2017-02-15 08:00 | NUR ---
AM Initial Notes Pt aaox3 with confusion. No complaints of pain but discomfort from not having a bowel movement. No sob, difficulty breathing or distress noted. IV to right ac #22g saline locked patent and flushing. Pt states she wants to have IV fluids running because she is urinating a lot. Informed patient that i have to get doctor's orders for it. We will wait until the doctor comes in and does his rounds. Also states she wants stronger laxatives to help her have a bowel movement. Encouraged patient to drink her Golytely. Pt states it gives her a lot of gas and its causing discomfort. Educated about effects of laxatives that causes discomfort. Verbalized understanding. Fall and safety precautions enforced with bed alarm armed, ID band on, 3 rails up and close to nurse's station. Encouraged to call for assistance. Call light within reach. Will monitor.
[2017-02-15 08:16] VITALS: BP_SYST 113
[2017-02-15] MEDS: MILK OF MAGNESIA 30 ML UDC PO SCH (09:00)
[2017-02-15] MEDS: ALBUTEROL SULFATE 2 MG TABLET PO SCH ×3 (09:00→21:16)
--- NOTE | 2017-02-15 09:00 | NUR ---
Nutrition Update Deven Scale 17 noted. Pt admitted for fecal impaction. Diet: clear liquid BMI: 13.9 kg/m2 RD to follow per nutrition care standards.
--- NOTE | 2017-02-15 09:08 | NUR ---
Tylenol Pt complaints of abdominal pain and cramping 3/10 and wants to be medicated. Medicated patient with Tylenol. Encouraged to call for assistance.
--- NOTE | 2017-02-15 10:45 | NUR ---
Bowel Movement Pt had a large bowel movement. States she feels relieved and discomfort is gone. No signs of distress noted. Encouraged to keep drinking fluids. Kept comfortable. Encouraged to call for assistance. Call light within reach. Will monitor.
[2017-02-15 12:25] VITALS: BP_SYST 109
--- NOTE | 2017-02-15 12:30 | NUR ---
Rounds Pt awake with no complaints of pain or discomfort. No distress noted. Pt had another bowel movement. Assisted to bedside commode and back to bed. Kept comfortable. Fall and safety precautions enforced. Encouraged to call for assistance. Call light within reach. Will monitor.
--- NOTE | 2017-02-15 13:40 | NUR ---
Notes Pt awake laughing and talking to self. No significant changes noted. Safety and fall precautions enforced. Encouraged to call for assistance. Will monitor.
--- NOTE | 2017-02-15 16:34 | NUR ---
Rounds Pt asleep. No signs of facial grimacing for pain or discomfort. NO distress noted. Call light within reach. Will monitor.
[2017-02-15 17:02] VITALS: BP_SYST 112
--- NOTE | 2017-02-15 18:30 | NUR ---
Closing notes Pt awake resting in bed with no complaints of pain or discomfort. No distress noted. Will endorse care to incoming nurse.
[2017-02-15 20:15] VITALS: BP_SYST 102
--- NOTE | 2017-02-15 20:15 | NUR ---
OPENING NOTES PATIENT IS A/OX3. NO SIGNS OF DISTRESS. BREATHING IS NON LABORED. VITAL SIGNS ARE STABLE. IV IS PATENT. PATIENT HAS NO COMPLAINTS OF PAIN. BED ALARM IS. CALL LIGHT IS WITHIN REACH. SAFETY MEASURES ARE IN PLACE. WILL CONTINUE TO MONITOR. PATIENT INSTRUCTED TO CALL FOR ASSISTANCE. PATIENT VERBALIZED UNDERSTANDING.
[2017-02-15] MEDS: cefTRIAXone 1 GM in D5W 50 ML IV SCH (21:16)
--- NOTE | 2017-02-15 22:29 | NUR ---
ROUNDS PATIENT WAS CLEANED OF STOOL. ZHANG FERNANDEZ ASSISTED.
[2017-02-16] VITALS (7 sets, daily range): BP systolic 103–122
--- NOTE | 2017-02-16 00:45 | NUR ---
ROUNDS PATIENT WAS GIVEN TEA DRINK. PATIENT IS IN BED RESTING COMFORTABLE. BED ALARM IS ON. CALL LIGHT IS WITHIN REACH. WILL CONTINUE TO MONITOR.
--- NOTE | 2017-02-16 03:05 | NUR ---
ROUNDS PATIENT IS IN BED SLEEPING. NO SIGNS OF DISTRESS. BREATHING IS NON LABORED. BED ALARM IS ON. CALL LIGHT IS WITHIN REACH. WILL CONTINUE TO MONITOR.
--- NOTE | 2017-02-16 04:05 | NUR ---
PATIENT CARE PATIENT WAS ASSISTED ON AND OFF THE BEDSIDE COMMODE. PATIENT IS RESTING COMFORTABLY. NO SIGNS OF DISTRESS. BREATHING IS NON LABORED. CALL LIGHT IS WITHIN REACH. BED ALARM IS ON. WILL CONTINUE TO MONITOR.
--- NOTE | 2017-02-16 06:46 | NUR ---
CLOSING NOTES PATIENT IS IN BED SLEEPING. NO SIGNS OF DISTRESS. BREATHING IS NON LABORED. CALL LIGHT IS WITHIN REACH. BED ALARM IS ON. WILL ENDORSE ALL CARE TO THE MORNING NURSE.
--- NOTE | 2017-02-16 07:41 | NUR ---
AM ROUNDS PT A/OX3 W/SOME FORGETFULNESS...DENIES PAIN AT THIS TIME...HL TO RAC FLUSHES WELL...CALL LIGHT/PHONE W/IN REACH...WILL CONT TO MONITOR
[2017-02-16 08:29] LABS: BASOPHILS # (AUTO) 0.1 K/uL (0.0-0.2); BASOPHILS % (AUTO) 0.8 % (0.0-2.0); EOSINOPHILS # (AUTO) 0.5 K/uL (0.0-0.4); EOSINOPHILS % (AUTO) 6.3 % (0.0-4.0); HEMATOCRIT 37.4 % (36-48); HEMOGLOBIN 12.3 g/dL (12.0-16.0); LYMPHOCYTES # (AUTO) 1.2 K/uL (1.0-5.5); LYMPHOCYTES % (AUTO) 14.6 % (20.5-51.5); MEAN CORPUSCULAR HEMOGLOBIN 29 pg (27-31); MEAN CORPUSCULAR HGB CONC 33 % (32-36); MEAN CORPUSCULAR VOLUME 87 fL (79.0-98.0); MONOCYTES # (AUTO) 0.6 K/uL (0.0-1.0); MONOCYTES % (AUTO) 7.3 % (1.7-9.3); PLATELET COUNT (AUTO) 256 K/uL (130-430); RED BLOOD CELL COUNT(AUTO) 4.29 MIL/uL (4.2-6.2); RED CELL DISTRIBUTION WIDTH 14.3 % (9.0-15.0)
[2017-02-16 08:32] LABS: WHITE BLOOD COUNT (AUTO) 8.4 K/uL (4.8-10.8)
[2017-02-16 08:34] LABS: CALCIUM 8.3 mg/dL (8.4-11.0); CREATININE 1.02 mg/dL (0.55-1.30); POTASSIUM 3.3 mmol/L (3.5-5.1)
[2017-02-16] MEDS: ALBUTEROL SULFATE 2 MG TABLET PO SCH ×3 (09:00→20:35)
[2017-02-16] MEDS: MILK OF MAGNESIA 30 ML UDC PO SCH (09:17)
--- NOTE | 2017-02-16 09:59 | NUR ---
REPORT GIVEN TO BARON DE LOS SANTOS FOR CONTINUED CARE
--- NOTE | 2017-02-16 10:00 | NUR ---
[place] of care Pt awake and pleasant. No complaints of pain or discomfort. No distress noted. Kept pt comfortable. Re-educated about fall and safety. Fall and safety precautions enforced. Encouraged to call for assistance. Will monitor.
--- NOTE | 2017-02-16 10:05 | NUR ---
Social Service Note: Pt referred to child welfare social worker by physician due to pt's family dynamics and readmissions. Pt is known to FISHER EEL from previous admission. FISHER EEL met with pt at bedside. Pt states that she came to the hospital for her chronic constipation. 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 Pt states that she tries to eat a balanced diet and walk to keep things regular. FISHER EEL spoke with pt about her discharge plan; pt states that she plans to return home where she is living in a mobile home with family members; pt sates that she does not like her living environment but is working with a special agent group insurance to find alternative. FISHER EEL offered to provide pt with community resources; pt denied saying that she does not need assistance. FISHER EEL spoke with pt about resuming her home health upon discharge; pt is agreeable to resuming services with [facility] if ordered by physician. Pt states that she has no needs/concerns at this time. FISHER EEL will follow up as needed.
--- NOTE | 2017-02-16 12:00 | NUR ---
Notes Pt awake eating lunch. No complaints of pain but states she still has diarrhea from the milk of magnesia medicine given this morning. No distress noted. Will monitor.
--- NOTE | 2017-02-16 12:50 | NUR ---
Dr. Rosalinda LANG doing rounds. Plan of care discussed.
[2017-02-16] MEDS ORDERED: POTASSIUM CHLORIDE 20 MEQ TAB.PRT.SR PO ONE (13:00)
--- NOTE | 2017-02-16 14:00 | NUR ---
Rounds Pt on the commode and states she still has loose stools. Buttocks and rectum appears to be red and tender. Cleaned and applied z-guard. No distress noted. Will monitor.
--- NOTE | 2017-02-16 14:14 | NUR ---
DISCHARGE PLANNING DC order for bedside commode. Faxed DME order to [facility]([phone] [phone] requesting to be delivered to patient home. Will follow up. Addendum: 02/16/17 at 1525 by Mariel Pat DP Spoke with Ha at [facility] [place] who stated DME order still being processed, advised DCP to call back at later time. Addendum: 02/16/17 at 1528 by Mariel Pat DP Meanwhile; Faxed DME order to [phone]. Will follow up. Addendum: 02/16/17 at 1605 by Mariel Pat DP Spoke with Marisel at [facility], unable to process not contracted with medicare. Faxed order to [facility] [employer] [phone]. Will follow up. Addendum: 02/16/17 at 6370 by Mariel Pat DP Spoke with Gloria at [facility] [employer] order currently being processed and patient will be called in AM to make delivery arrangements.
--- NOTE | 2017-02-16 16:30 | NUR ---
Rounds Pt states she is not comfortable going home because she still feels there's more fecal matter in her colon and it's pressing on her bladder. Also states she does not feel comfortable going home because she is still having loose stools and she can't make it to the commode on time. She requests to stay one more night because she needs a bedside commode and the diaper is not secured enough for her to keep the carpet clean if she needs to go. Educated patient about reasons for discharge. Pt refuses to go home because she feels she is not stable enough to go home. Informed patient that we will call Dr. Tellez.
--- NOTE | 2017-02-16 16:45 | NUR ---
Dr. Rosalinda Moore was made to Dr. Tellez.
--- NOTE | 2017-02-16 18:41 | NUR ---
Closing notes Pt awake resting in bed. No significant changes noted. Informed patient that Dr. Tellez held discharge and she can go home tomorrow morning. Patient was happy and feels more at peace. Kept comfortable. Will endorse care to incoming nurse.
--- NOTE | 2017-02-16 20:00 | NUR ---
Notes; Pt awake and pleasant. Oriented x3 with period of confusion. No acute distress noted. Vital signs stable, afebrile. Denies any pain or discomfort at this time. Instructed Pt on the use of call light. Pt demonstrated and verbalized understanding. Fall and safety precautions enforced. Encouraged to call for assistance. Call light within reach. Will monitor.
[2017-02-16] MEDS: cefTRIAXone 1 GM in D5W 50 ML IV SCH (20:03)
--- NOTE | 2017-02-16 20:36 | NUR ---
NOTES; SCHEDULED PO MEDICATION ADMINISTERED. PT TOLERATED MEDS WELL.
--- NOTE | 2017-02-16 22:45 | NUR ---
NOTES; ASSISTED WITH BEDSIDE COMMODE. PT VOIDED FREELY GOOD VOLUME OF URINE AMOUNT. ASSISTED BACK TO BED. SAFETY MEASURES IN PROGRESS. DENIES ANY PAIN AT THIS TIME. CALL LIGHT WITHIN REACH.
--- NOTE | 2017-02-16 23:47 | NUR ---
NOTES; PT APPEARED TO BE SLEEPING, EYES CLOSED. RESPIRATION EVEN AND UNLABORED. SAFETY MEASURES IN PROGRESS.
--- NOTE | 2017-02-17 01:45 | NUR ---
NOTES; PT APPEARED TO BE SLEEPING, EYES CLOSED. RESPIRATION EVEN AND UNLABORED. EASILY AROUSED. CALL LIGHT WITHIN REACH. SAFETY MEASURES IN PROGRESS.
--- NOTE | 2017-02-17 03:31 | NUR ---
NOTES; PT APPEARED TO BE SLEEPING, EYES CLOSED. RESPIRATION EVEN AND UNLABORED. EASILY AROUSED. CALL LIGHT WITHIN REACH. KATH PRECAUTION IN PLACE. SAFETY MEASURES IN PROGRESS. WILL CONTINUE TO MONITOR.
[2017-02-17 04:45] VITALS: BP_SYST 108
--- NOTE | 2017-02-17 05:59 | NUR ---
NOTES; ASSISTED TO THE BEDSIDE COMMODE. PT VOIDED FREELY, GOOD VOLUME OF URINE AMOUNT AND MEDIUM LOOSE BM. ASSISTED BACK TO BED. GOWN CHANGED PER PT REQUEST. SAFETY MEASURES IN PROGRESS. DENIES ANY PAIN AT THIS TIME. CALL LIGHT WITHIN REACH.
--- NOTE | 2017-02-17 06:54 | NUR ---
NOTES; Pt is resting quietly in bed, no acute distress noted. No signs or symptoms of pain noted. All needs met throughout shift. Will continue to monitor until endorsed to AM nurse at bedside.
[2017-02-17] MEDS: MILK OF MAGNESIA 30 ML UDC PO SCH (09:00)
[2017-02-17] MEDS: ALBUTEROL SULFATE 2 MG TABLET PO SCH (09:00)
[2017-02-17 09:36] VITALS: BP_SYST 112
[2017-02-17 09:55] VITALS: BP_SYST 112
--- NOTE | 2017-02-17 10:28 | NUR ---
ROUNDS PT STABLE...NO CHANGES...AWAITING DISCHARGE HOME
--- NOTE | 2017-02-17 10:29 | NUR ---
LATE ENTRY FOR 734 AM ROUNDS PT SITTING UP IN BED, VERY TALKATIVE...DENIES PAIN AT THIS TIME....HL TO RAC FLUSHES WELL...PT AWAITING DC HOME TODAY....CALL LIGHT/PHONE W/IN REACH...WILL CONT TO MONITOR
--- NOTE | 2017-02-17 10:30 | NUR ---
LATE ENTRY FOR 929 DUE TO PT CARE PT REFUSED ALL MEDS THIS MORNING...MOM AND ALBUTEROL P.O.
--- NOTE | 2017-02-17 11:12 | NUR ---
DISCHARGE PLANNING Called [facility] Soje[facility] Dennehotso to follow up on requested bedside commode for patient discharge. Spoke with Merlyn in intake dept who transferred call to [facility] who confirmed DME scheduled to be delivered to patient home between 1-4:30pm on Monday 02/19. [facility] stated soonest able to deliver commode to patient. Addendum: 02/17/17 at 1133 by Mariel DIANA Faxed DME order to [facility] [phone]. Will follow up. Addendum: 02/17/17 at 1350 by Mariel Pat DP Received call from Kaylyn at [facility] [phone] Faxed EMR as requested for services to be resumed [phone]. Kaylyn will call patient today to make visit arrangements. Addendum: 02/17/17 at 1452 by Mariel DIANA spoke with Elizabeth at [facility] [phone] unable to arrange, does not supply requested DME. Called and spoke with Marisel at [facility] [phone] who stated unable to arrange due to patient does not qualify for commode. KEYANNA Waller made aware. Addendum: 02/17/17 at 1458 by Christin Summers RN >> Informed pt. at bedside about not qualifying for BSC, dt the pt. is able to ambulate to restroom without difficult now. With pt's acknowledgement stated " no problem,since now she does not to take laxative anymore. She will arrange to get one/buy one if she needed it later.The pt. is waiting for her family to pick her up for home." --DARARN
[2017-02-17 11:39] VITALS: BP_SYST 101
[2017-02-17 13:49] VITALS: BP_SYST 115
--- NOTE | 2017-02-17 15:19 | NUR ---
AWAITING TAXI FOR RECREATION ACTIVITIES COORDINATOR...PT DISCHARGED, JUST AWAITING P/UP
--- NOTE | 2017-02-17 15:32 | NUR ---
D/C Patient Patient given medication reconciliation form and D/C instructions. Exit Care provided. Patient verbalized understanding. MD discussed with patient the results and treatment provided. Ambulatory with steady gait for discharge to home. Patient in stable condition, ID band removed. IV catheter removed, intact and dressing applied, no active bleeding. Rx of MILK OF MAGNESIUM given. Patient educated on pain management. All belongings sent with patient.
== END 2017-02-17 15:39 | disposition home or self-care (01) | DRG 720 ==
LOC: SED 18:41 → SMU 20:08
PROVIDERS: ADMIT Internal Medicine; ATTEND Internal Medicine
DX: A41.9 Sepsis, unspecified organism (principal); N39.0 Urinary tract infection, site not specified; E11.9 Type 2 diabetes mellitus without complications; G31.9 Degenerative disease of nervous system, unspecified; I10 Essential (primary) hypertension; E44.1 Mild protein-calorie malnutrition; K56.41 Fecal impaction; F23 Brief psychotic disorder; E87.6 Hypokalemia; E66.9 Obesity, unspecified; Z68.32 Body mass index [BMI] 32.0-32.9, adult; Z91.19 Patient's noncompliance with other medical treatment and regimen; Z88.0 Allergy status to penicillin; Z86.73 Personal history of transient ischemic attack (TIA), and cerebral infarction without residual deficits
CPT/HCPCS: 36415; 74000-TC; 80048; 80053; 81000-TC; 82150-TC; 82272; 83605; 83690-TC; 85007; 85025; 85027; 87040-TC; 87081; 96361; 96365; 99285; J0696; J1956; J7030; J7050; J7060

== ENCOUNTER 2017-10-16 06:46 | Emergency (ER) | payer MEDICAID, MEDICARE ==
[~2017-10-16] VITALS: Ht 165.1 cm; Wt 79.4 kg
[~2017-10-16 06:46] MED LIST changes: -CEPH250C PO
[2017-10-16 06:49] VITALS: BP_SYST 128
--- NOTE | 2017-10-16 06:49 | NUR ---
Placed in room 06 . Placed on cardiac rn, blood pressure machine and pulse oximeter. To gown for exam. Side rails up. Report given to RN.
--- NOTE | 2017-10-16 06:49 | NUR ---
Patient AAO x4, sitting in bed, brought in BLS for c/o excessive urination with lower abd/suprapubic discomfort 04/08. - N/V/D. States she has history of frequent UTI and frequent impaction. No acute distress noted. Will continue to monitor.
--- NOTE | 2017-10-16 06:50 | NUR ---
Patient ambulated to bathroom for urine collection.
--- NOTE | 2017-10-16 07:00 | NUR ---
Dr. Lr at bedside for evaluation
--- NOTE | 2017-10-16 07:05 | NUR ---
Report given to CHASE Daniels. All care endorsed.
[2017-10-16 07:18] LABS: BILIRUBIN,URINE NEGATIVE (NEGATIVE); BLOOD, URINE NEGATIVE (NEGATIVE); CLARITY/URINE CLEAR (CLEAR); COLOR,URINE YELLOW (YELLOW); GLUCOSE,URINE NEGATIVE (NEGATIVE); KETONES,URINE NEGATIVE (NEGATIVE); LEUKOCYTE ESTERASE ,URINE 1+ (NEGATIVE); NITRITE, URINE NEGATIVE (NEGATIVE); PH,URINE 5.5 (5.0-8.0); PROTEIN URINE NEGATIVE (NEGATIVE); UROBILINOGEN,URINE 0.2 (0.2-1.0)
[2017-10-16] MEDS ORDERED: NS 500 ML IV ONE (07:30)
[2017-10-16] MEDS ORDERED: NACL 0.9% 1,000 ML IV ONE (07:30)
--- NOTE | 2017-10-16 07:30 | NUR ---
# 20 gauge angiocath placed to RAC. Use of asceptic technique. Opsite placed over site. Blood return noted. Blood for lab drawn from site. Flushed with 10 cc of normal saline. No evidence of infiltration noted. Patient tolerated well.
--- NOTE | 2017-10-16 07:44 | NUR ---
IV fluids given, pt tolerated well. No adverse reaction, will continue to monitor.
[2017-10-16 07:47] LABS: BACTERIA,URINE FEW /HPF (None Seen); RBC,URINE 0-3 /HPF (0-3)
[2017-10-16 08:05] LABS: BASOPHILS % (AUTO) 0.4 % (0.0-2.0); EOSINOPHILS # (AUTO) 0.1 K/uL (0.0-0.4); EOSINOPHILS % (AUTO) 0.8 % (0.0-4.0); LYMPHOCYTES # (AUTO) 0.9 K/uL (1.0-5.5); LYMPHOCYTES % (AUTO) 9.7 % (20.5-51.5); MEAN CORPUSCULAR HEMOGLOBIN 29 pg (27-31); MEAN CORPUSCULAR HGB CONC 33 % (32-36); MEAN CORPUSCULAR VOLUME 89 fL (79.0-98.0); MONOCYTES # (AUTO) 0.5 K/uL (0.0-1.0); MONOCYTES % (AUTO) 5.9 % (1.7-9.3); NEUTROPHILS # (AUTO) 7.6 K/uL (1.8-7.7); NEUTROPHILS % (AUTO) 83.2 % (40.0-70.0); PLATELET COUNT (AUTO) 349 K/uL (130-430); RED BLOOD CELL COUNT(AUTO) 4.85 MIL/uL (4.2-6.2); RED CELL DISTRIBUTION WIDTH 13.1 % (9.0-15.0); WHITE BLOOD COUNT (AUTO) 9.1 K/uL (4.8-10.8)
[2017-10-16 08:27] LABS: ANION GAP 8 (5-15); CALCIUM 10.2 mg/dL (8.4-11.0); CHLORIDE 101 mmol/L (98-107); CREATININE 0.75 mg/dL (0.55-1.30); GLUCOSE 96 mg/dL (70-99); SODIUM SERUM 138 mmol/L (136-145); UREA NITROGEN, BLOOD 12 mg/dL (8-21)
[2017-10-16] MEDS ORDERED: NS 250 ML IV ONE (08:30)
[2017-10-16 08:32] LABS: ALANINE AMINOTRANSFERASE 20 U/L (12-78); ALBUMIN 3.5 g/dL (3.4-4.8); AMYLASE 50 U/L (0-100); ASPARTATE AMINOTRANSFERASE 19 U/L (10-37); LIPASE 184 U/L (73-393); TOTAL BILIRUBIN 0.3 mg/dL (0.0-1.0)
[2017-10-16 08:34] LABS: PROTHROMBIN TIME 9.7 SECS (9.5-12.5)
[2017-10-16 08:52] VITALS: BP_SYST 122
--- NOTE | 2017-10-16 08:52 | NUR ---
Patient given written and verbal discharge instructions and verbalizes understanding. ER MD discussed with patient the results and treatment provided. Patient in stable condition. ID arm band removed. IV catheter removed intact and dressing applied, no active bleeding. Rx of Bactrim given. Patient educated on pain management and to follow up with PMD. Pain Scale 0. Opportunity for questions provided and answered.
== END 2017-10-16 08:52 | disposition home or self-care (01) ==
LOC: SED 06:46
DX: N30.90 Cystitis, unspecified without hematuria (principal); E11.9 Type 2 diabetes mellitus without complications; I10 Essential (primary) hypertension; H40.9 Unspecified glaucoma; Z86.73 Personal history of transient ischemic attack (TIA), and cerebral infarction without residual deficits; Z88.0 Allergy status to penicillin
CPT/HCPCS: 36415; 80053; 81000; 82150; 83690; 85025; 85610; 87086; 93005; 96360; 96361; 99285; J7030; J7050

== ENCOUNTER 2018-03-06 23:39 | Emergency (ER) | payer MEDICARE, MEDICAID ==
[~2018-03-06] VITALS: Ht 165.1 cm; Wt 77.1 kg
[2018-03-06 23:47] VITALS: BP_SYST 130
[2018-03-07] MEDS ORDERED: NACL 0.9% 1,000 ML IV ONE (00:30)
[2018-03-07 00:55] LABS: BASOPHILS % (AUTO) 0.6 % (0.0-2.0); EOSINOPHILS # (AUTO) 0.3 K/uL (0.0-0.4); EOSINOPHILS % (AUTO) 3.4 % (0.0-4.0); HEMOGLOBIN 13.7 g/dL (12.0-16.0); LYMPHOCYTES # (AUTO) 0.8 K/uL (1.0-5.5); LYMPHOCYTES % (AUTO) 9.3 % (20.5-51.5); MEAN CORPUSCULAR HEMOGLOBIN 30 pg (27-31); MEAN CORPUSCULAR HGB CONC 33 % (32-36); MEAN CORPUSCULAR VOLUME 89 fL (79.0-98.0); MONOCYTES # (AUTO) 0.4 K/uL (0.0-1.0); NEUTROPHILS # (AUTO) 6.8 K/uL (1.8-7.7); NEUTROPHILS % (AUTO) 81.7 % (40.0-70.0); PLATELET COUNT (AUTO) 349 K/uL (130-430); RED BLOOD CELL COUNT(AUTO) 4.63 MIL/uL (4.2-6.2); RED CELL DISTRIBUTION WIDTH 13.1 % (9.0-15.0); WHITE BLOOD COUNT (AUTO) 8.3 K/uL (4.8-10.8)
[2018-03-07 01:10] LABS: ANION GAP 8 (5-15); CALCIUM 9.1 mg/dL (8.4-11.0); CHLORIDE 103 mmol/L (98-107); CREATININE 1.09 mg/dL (0.55-1.30); GLUCOSE 115 mg/dL (70-99); POTASSIUM 3.7 mmol/L (3.5-5.1); SODIUM SERUM 140 mmol/L (136-145); UREA NITROGEN, BLOOD 17 mg/dL (8-21)
[2018-03-07 01:16] LABS: ALANINE AMINOTRANSFERASE 21 U/L (12-78); ALBUMIN 3.1 g/dL (3.4-4.8); ASPARTATE AMINOTRANSFERASE 19 U/L (10-37); TOTAL BILIRUBIN 0.5 mg/dL (0.0-1.0)
[2018-03-07 01:51] LABS: BILIRUBIN,URINE NEGATIVE (NEGATIVE); BLOOD, URINE NEGATIVE (NEGATIVE); CLARITY/URINE CLEAR (CLEAR); COLOR,URINE YELLOW (YELLOW); GLUCOSE,URINE NEGATIVE (NEGATIVE); KETONES,URINE NEGATIVE (NEGATIVE); LEUKOCYTE ESTERASE ,URINE 1+ (NEGATIVE); NITRITE, URINE NEGATIVE (NEGATIVE); PROTEIN URINE NEGATIVE (NEGATIVE); UROBILINOGEN,URINE 0.2 (0.2-1.0)
[2018-03-07 01:54] LABS: BACTERIA,URINE MODERATE /HPF (None Seen); RBC,URINE 0-3 /HPF (0-3)
[2018-03-07 01:55] LABS: MUCUS,URINE None Seen /LPF (None Seen)
[2018-03-07] MEDS ORDERED: cefTRIAXone 1 GM IVPB PREMIX 50 ML IV ONE (02:00)
[2018-03-07 02:56] VITALS: BP_SYST 130
== END 2018-03-07 02:56 | disposition home or self-care (01) ==
LOC: SED 23:39
DX: E86.0 Dehydration (principal); E11.9 Type 2 diabetes mellitus without complications; I10 Essential (primary) hypertension; Z88.0 Allergy status to penicillin; Z86.73 Personal history of transient ischemic attack (TIA), and cerebral infarction without residual deficits
CPT/HCPCS: 36415; 80053; 81000; 85025; 87086; 96361; 96365; 99284; J0696; J7030